=== PATIENT | female | born 2000 | race Two or more races ===

== ENCOUNTER 2024-10-23 20:29 | Emergency (ER) | payer MEDICAID ==
[~2024-10-23] VITALS: Ht 157.5 cm; Wt 49.0 kg
[2024-10-23 20:43] VITALS: BP 15/57
[2024-10-23] MEDS ORDERED: OXYC-133 PO (21:27)
[2024-10-23] MEDS ORDERED: ONDA4TAB11 PO (21:27)
[2024-10-23] MEDS ORDERED: ONDANSETRON 4 MG/2 ML VIAL ONE (21:55)
[2024-10-23] MEDS ORDERED: MORPHINE SULFATE 4 MG/1 ML DISP.SYRIN ONE (21:56)
[2024-10-23] MEDS: MORPHINE SULFATE 4 MG/1 ML DISP.SYRIN IV ONE ×2 (22:12→23:22)
[2024-10-23] MEDS: IV NORMAL SALINE 1000 ML BAG IV ONE (22:12)
[2024-10-23] MEDS: ONDANSETRON 4 MG/2 ML VIAL IV ONE (22:12)
[2024-10-23] MEDS ORDERED: diphenhydrAMINE 50 MG/1 ML VIAL ONE (22:36)
[2024-10-23] MEDS: diphenhydrAMINE 50 MG/1 ML VIAL IV ONE (23:11)
[2024-10-23] MEDS ORDERED: MORPHINE SULFATE 2 MG/1 ML DISP.SYRIN ONE (23:13)
[2024-10-23 23:51] VITALS: BP 110/65; O2SAT 99
== END 2024-10-23 23:32 | disposition home or self-care (01) ==
LOC: ER 20:29
DX: M25.50 Pain in unspecified joint (principal); F11.20 Opioid dependence, uncomplicated; R20.0 Anesthesia of skin; R20.2 Paresthesia of skin; R11.10 Vomiting, unspecified; R44.3 Hallucinations, unspecified; G89.29 Other chronic pain; Z88.5 Allergy status to narcotic agent; Z88.7 Allergy status to serum and vaccine; Z87.39 Personal history of other diseases of the musculoskeletal system and connective tissue; Z88.8 Allergy status to other drugs, medicaments and biological substances
CPT/HCPCS: 99284; 96374; 96375; 96361; 96376; J1200; J2405; J2270 ×2; J7040; A4606; A4663